=== PATIENT | female | born 1990 | race Caucasian/White ===

== ENCOUNTER 2020-05-29 20:15 | Emergency (ER) | payer SELFPAY ==
[~2020-05-29] VITALS: Ht 154.9 cm; Wt 49.9 kg
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
[2020-05-29 20:54] LABS: BILIRUBIN,URINE NEGATIVE (NEGATIVE); COLOR,URINE YELLOW (YELLOW); LEUKOCYTE ESTERASE ,URINE NEGATIVE (NEGATIVE); NITRITE, URINE POSITIVE (NEGATIVE); PH,URINE 6.5 (5.0-8.0); PROTEIN,URINE NEGATIVE (NEGATIVE); UGLUCOSE NEGATIVE (NEGATIVE); UROBILINOGEN,URINE 0.2 EU/dL (0.2)
--- NOTE | 2020-05-29 20:57 | NUR ---
PT REFUSED BLOOD DRAW AND IV. CARLOS EDUARDO REDDY AWARE.
[2020-05-29] MEDS ORDERED: IV NS 0.9% 1,000 ML IV ONE (21:00)
[2020-05-29 21:14] LABS: BACTERIA,URINE 2+ /HPF (None Seen); RBC,URINE 0-2 /HPF (0-2); SQUAMOUS EPITHELIAL CELL,UR Moderate /HPF (None Seen); WBC,URINE 0-2 /HPF (0-3)
[2020-05-29] MEDS ORDERED: ACET325C7 PO (21:42)
[2020-05-29] MEDS ORDERED: CEPH500C2 PO (21:43)
[2020-05-29 22:03] VITALS: BP 106/68
--- NOTE | 2020-05-29 22:03 | NUR ---
Patient discharged to home in stable condition. Rx and Written and verbal after care instructions given. Patient verbalizes understanding of instruction.
== END 2020-05-29 22:04 | disposition home or self-care (01) ==
LOC: ER 20:19
DX: O9A.211 Injury, poisoning and certain other consequences of external causes complicating pregnancy, first trimester (principal); O23.41 Unspecified infection of urinary tract in pregnancy, first trimester; R10.13 Epigastric pain; R10.30 Lower abdominal pain, unspecified; Z3A.01 Less than 8 weeks gestation of pregnancy; V29.49XA Motorcycle driver injured in collision with other motor vehicles in traffic accident, initial encounter; Y93.89 Activity, other specified; Y92.413 State road as the place of occurrence of the external cause; Y99.8 Other external cause status
CPT/HCPCS: 36415; 76700-TC; 76856-TC; 81001; 87086-TC